=== PATIENT | female | born 2000 ===

== ENCOUNTER 2021-04-05 15:53 | Outpatient (CLI) | payer OTHER | END 2021-04-05 16:56 | disposition home or self-care (01) | LOC: PRENATAL 15:53 | PROVIDERS: ATTEND Obstetrics & Gynecology Maternal & Fetal Medicine | DX: O35.0XX1 Maternal care for (suspected) central nervous system malformation in fetus, fetus 1 (principal); O35.3XX1 Maternal care for (suspected) damage to fetus from viral disease in mother, fetus 1; O98.512 Other viral diseases complicating pregnancy, second trimester; O28.1 Abnormal biochemical finding on antenatal screening of mother; O99.212 Obesity complicating pregnancy, second trimester; Z36.89 Encounter for other specified antenatal screening; Z3A.27 27 weeks gestation of pregnancy ==

== ENCOUNTER 2021-07-02 14:52 | Inpatient (IN) | payer OTHER ==
[~2021-07-02] VITALS: Ht 175.3 cm; Wt 128.4 kg
[2021-07-02] MEDS ORDERED: PRENATAL + DHA1 EAC1 (15:19)
== END 2021-07-04 15:05 | disposition home or self-care (01) | DRG 807 ==
LOC: OB/GYN 14:52 → LDR 14:52 → OB/GYN 16:12
PROVIDERS: ADMIT Obstetrics & Gynecology; ATTEND Obstetrics & Gynecology
PROC: 10E0XZZ Delivery of Products of Conception, External Approach (ICD-10-PCS; principal; 2021-07-02)
PROC: 4A1HXCZ Monitoring of Products of Conception, Cardiac Rate, External Approach (ICD-10-PCS; 2021-07-02)
DX: O80 Encounter for full-term uncomplicated delivery (principal); Z37.0 Single live birth; Z3A.39 39 weeks gestation of pregnancy; Z20.822 Contact with and (suspected) exposure to COVID-19